=== PATIENT | female | born 1985 | race Caucasian/White ===

== ENCOUNTER → 2018-01-01 | Outpatient (CLI) | payer OTHER ==
[~2018-01-01] MED LIST: AMOX500 PO; CEPH500 PO; CIME400 PO; CYCL10 PO; DIPH50 PO; EPIN.3I IM; HYDACE5 PO; HYDR1TAB94 PO; IBUP600 PO; LORA10ER PO; Norco 5-325 Ta1 EACH PO; OXYACE5T PO; PRED20 PO; PSEU30 PO; SULTRIDS PO; Ultram50 MG PO
[2018-01-02 10:58] LABS: Candida species (DNA Probe) Negative (NEGATIVE); G. vaginalis (DNA Probe) Positive (NEGATIVE); T. vaginalis (DNA Probe) Negative (NEGATIVE)
[2018-01-05 22:09] LABS: CHLAMYDIA TRACHOMATIS, NAA Negative (Negative); NEISSERIA GONORRHOEAE, NAA Negative (Negative)
[2018-01-06 12:10] LABS: HPV 16 Negative (Negative); HPV 18 Negative (Negative); HPV OTHER HR TYPES Positive (Negative)
== END ==
LOC: LAB SHORT 14:58 → LAB SRC 14:58
PROVIDERS: Nurse Practitioner Family
DX: Z12.4 Encounter for screening for malignant neoplasm of cervix (principal); N89.8 Other specified noninflammatory disorders of vagina
CPT/HCPCS: 87480; 87491; 87510; 87591; 87624; 87660; G0123

== ENCOUNTER 2018-02-10 11:16 | Emergency (ER) | payer OTHER ==
[~2018-02-10] VITALS: Ht 162.6 cm; Wt 59.0 kg
[2018-02-10] MEDS ORDERED: Bactrim Ds Tab1 EACH PO (11:45)
== END 2018-02-10 12:37 | disposition home or self-care (01) ==
LOC: ER 11:16
DX: L03.116 Cellulitis of left lower limb (principal); B37.89 Other sites of candidiasis; B95.62 Methicillin resistant Staphylococcus aureus infection as the cause of diseases classified elsewhere; F19.10 Other psychoactive substance abuse, uncomplicated; F41.9 Anxiety disorder, unspecified; F17.200 Nicotine dependence, unspecified, uncomplicated; Z91.030 Bee allergy status; Z88.5 Allergy status to narcotic agent; Z79.899 Other long term (current) drug therapy
CPT/HCPCS: 99283

== ENCOUNTER → 2020-08-02 | Outpatient (CLI) | payer OTHER ==
[~2020-08-02] MED LIST changes: +BUPR100 PO; +Bactrim Ds Tab1 EACH PO; +IBUP800 PO; +Percocet 5-3251 EACH PO; +UNISOM25 MG PO
[2020-08-05 03:08] LABS: CHLAMYDIA TRACHOMATIS, NAA Negative (Negative); HPV 16 Negative (Negative); HPV 18 Negative (Negative); HPV OTHER HR TYPES Negative (Negative)
== END ==
LOC: LAB SHORT 16:30 → LAB 16:30
PROVIDERS: Nurse Practitioner Family
DX: Z12.4 Encounter for screening for malignant neoplasm of cervix (principal); Z72.51 High risk heterosexual behavior; Z88.5 Allergy status to narcotic agent; Z91.038 Other insect allergy status
CPT/HCPCS: 87491; 87591; 87624; G0123

== ENCOUNTER 2021-03-11 09:22 | Emergency (ER) | payer OTHER ==
[~2021-03-11] VITALS: Ht 162.6 cm; Wt 95.2 kg
[2021-03-11] MEDS ORDERED: Flagyl500 MG PO (10:21)
[2021-03-11] MEDS ORDERED: CEFP200 PO (10:21)
== END 2021-03-11 10:33 | disposition home or self-care (01) ==
LOC: ER 09:22
DX: K02.9 Dental caries, unspecified (principal); F17.200 Nicotine dependence, unspecified, uncomplicated; Z79.899 Other long term (current) drug therapy
CPT/HCPCS: 99282

== ENCOUNTER 2025-04-15 22:36 | Emergency (ER) | payer OTHER ==
[~2025-04-15] VITALS: Ht 162.6 cm; Wt 119.3 kg
[~2025-04-15 22:36] MED LIST changes: +CEFP200 PO; +Flagyl500 MG PO
[2025-04-15] MEDS ORDERED: PRED20 PO (23:21)
[2025-04-15 23:36] VITALS: BP 152/95
== END 2025-04-15 23:38 | disposition home or self-care (01) ==
LOC: ER 22:36
DX: L23.7 Allergic contact dermatitis due to plants, except food (principal); F17.200 Nicotine dependence, unspecified, uncomplicated; Z91.030 Bee allergy status; Z88.5 Allergy status to narcotic agent
CPT/HCPCS: 99282; J7512